=== PATIENT | female | born 1945 | race Hispanic/Latino ===

== ENCOUNTER 2016-10-15 14:07 | Outpatient (CLI) | payer MEDICARE | END 2016-10-15 14:08 | disposition home or self-care (01) | LOC: SPVWC 14:07 | PROVIDERS: ATTEND Internal Medicine Hematology & Oncology | DX: C50.811 Malignant neoplasm of overlapping sites of right female breast (principal); M79.605 Pain in left leg ==

== ENCOUNTER 2016-11-19 09:22 | Outpatient (CLI) | payer MEDICARE ==
--- NOTE | 2016-11-19 15:53 | Cat Scan Report ---
CT CHEST, ABDOMEN AND PELVIS WITH CONTRAST: 11/19/16 09:22:00 CLINICAL: History of right breast cancer involving overlapping sites. COMPARISON: 07/30/16 TECHNIQUE: Volumetric acquisition and 1.25 millimeter scan reconstructions after the uneventful intravenous injection of 100 cc of Omnipaque 300. Consent was obtained prior to the administration of the contrast. Oral contrast was also given. FINDINGS: Chest: The previously described multilobar bilateral lung opacities have largely resolved. Mild residual left lower lobe superior segment patchy opacity. Multilobar emphysema. The previously described enlarged right retrocrural lymph node has resolved. No mediastinal or hilar lymphadenopathy. A large right hiatal hernia and loculated small right pleural effusion are stable. The heart, aorta and pulmonary arteries are unremarkable. Abdomen: Stable 8mm benign left hepatic cysts. No liver mass. The liver is normal size with no normal overall density. The gallbladder is normal. Stable mild intrahepatic and extrahepatic biliary dilatation without an identified etiology. Much of the stomach is in the chest. The distal stomach and duodenum were normal. Normal pancreas and spleen. Stable mild enlargement of the right adrenal gland. Normal left adrenal gland. The renal pelves are mildly dilated but the kidneys are otherwise normal. The ureters are nondilated. Stable 3 cm infrarenal abdominal aortic aneurysm with intramural thrombus. The inferior vena cava is normal. No lymphadenopathy.No ascites.The small bowel and colon are normal. Normal appendix. Pelvis: Normal urinary bladder and rectum.Normal sigmoid colon. Absence of the uterus a normal vaginal cuff. The ovaries are small and unremarkable. Bone windows demonstrate a stable mixed sclerotic and lucent lesion of the left scapula. No new bone lesions. IMPRESSION:1. Resolution of multilobar pneumonia and no evidence of pulmonary metastasis. 2. No evidence of hepatic or rizwana metastasis. 3. A stable mixed lytic and sclerotic lesion of the left scapula.
== END 2016-11-19 09:23 | disposition home or self-care (01) ==
LOC: SPVIMAG 09:22
PROVIDERS: ATTEND Internal Medicine Hematology & Oncology
DX: C50.811 Malignant neoplasm of overlapping sites of right female breast (principal); I71.4 Abdominal aortic aneurysm, without rupture; K44.9 Diaphragmatic hernia without obstruction or gangrene; J90 Pleural effusion, not elsewhere classified; J43.8 Other emphysema; K76.89 Other specified diseases of liver; E27.8 Other specified disorders of adrenal gland; Z90.710 Acquired absence of both cervix and uterus
CPT/HCPCS: 71260; 74177; Q9967

== ENCOUNTER 2017-06-18 15:09 | Outpatient (CLI) | payer MEDICARE ==
--- NOTE | 2017-06-18 17:05 | Nuclear Medicine Report ---
VENTILATION PERFUSION SCAN INDICATION: Malignant neoplasm of overlapping sites of right breast. COMPARISON: Accompanying CXR and 11/19/[address] FINDINGS: VQ scan performed in anterior, posterior, lateral and oblique projections. 5 mCi of technetium 99m MAA was used for the perfusion assessment while 15 millicuries of Xenon 133 was utilized for the ventilation portion of the study. Ventilation images demonstrate photopenia in the right lower medial lung. The perfusion correlates with the ventilation. No other large lobar or definite segmental defects. Available chest radiograph from 4:42 PM today demonstrates right lower lung opacity, representing small pleural fluid with atelectasis/consolidation and large hiatal hernia containing stomach at the right lung base as known from prior CT. CONCLUSION: Intermediate probability exam for pulmonary embolism by PIOPED criteria, though overall likelihood of pulmonary embolism felt low, as described. Please correlate. Thank you for the opportunity to participate in this patient's care.
--- NOTE | 2017-06-19 07:20 | Vascular Lab Report ---
Left Lower Extremity Venous Duplex Study: Reason for Exam: Edema of the left lower extremity. Comments on the Right: A limited duplex study was done of the proximal veins of the right lower extremity. All veins visualized are freely compressible without evidence of internal echogenicity. Flow is spontaneous and phasic throughout. No evidence of acute or chronic thrombus is seen in any of the vessels visualized. Comments on the Left: All veins visualized are freely compressible without evidence of internal echogenicity. Flow is spontaneous and phasic throughout. No evidence of acute or chronic thrombus is seen in any of the vessels visualized. Impression: No evidence of acute or chronic deep venous thrombosis in the left lower extremity.
--- NOTE | 2017-06-19 07:40 | XRay Report ---
Single view chest: History: Evaluate for PE. Findings: Cardiomegaly. Trachea is midline. Emphysema. No acute consolidation or pleural effusion. Impression: Emphysema. No acute lung changes.
== END 2017-06-18 15:10 | disposition home or self-care (01) ==
LOC: NM 15:09
PROVIDERS: ATTEND Internal Medicine Hematology & Oncology
DX: C50.811 Malignant neoplasm of overlapping sites of right female breast (principal); R60.9 Edema, unspecified; K44.9 Diaphragmatic hernia without obstruction or gangrene; I51.7 Cardiomegaly; J43.9 Emphysema, unspecified
CPT/HCPCS: 71010; 78582; 93971; A9540; A9558

== ENCOUNTER 2017-07-16 08:57 | Outpatient (CLI) | payer MEDICARE ==
[2017-07-16 10:15] LABS: Blood Urea Nitrogen 22 mg/dL (7-17)
[2017-07-16] MEDS ORDERED: NACL ONE (12:07)
--- NOTE | 2017-07-16 13:15 | Cat Scan Report ---
CT of the chest with IV contrast. History: Breast cancer, followup study. Findings: Comparison is made to the previous study on 2015. The heterogeneous lesions in the right lobe of the thyroid are stable. There is no hilar adenopathy on today's study. The mildly enlarged left anterior hilar node seen on the previous study as resolved. No mediastinal or axillary adenopathy is present. The large hiatal hernia to the right of midline is again identified unchanged. Emphasematous changes persist, but no pulmonary nodules or masses are seen. There is no pleural fluid. Impression: 1. No evidence of metastatic disease in the chest. Left hilar adenopathy has resolved. 2. Stable large hiatal hernia and Emphasematous changes are noted.
--- NOTE | 2017-07-16 15:18 | Cat Scan Report ---
CT of the abdomen and pelvis with IV and oral contrast. History: Breast cancer, followup study. Findings: Comparison is made to the previous study on November 19, 2016. The large right-sided hiatal hernia is again noted. A subcentimeter hypodensity in the anterior left lobe of the liver is stable. No new liver lesions are seen. The spleen and pancreas are unremarkable. The gallbladder appears normal. The kidneys are normal in size and configuration. There is mild stable prominence of the right adrenal gland. The left adrenal gland is normal. There is no retroperitoneal adenopathy. There is ectasia of the distal abdominal aorta which measures 3 cm in diameter, unchanged from the previous study. There are no pelvic masses or abnormal fluid collections. No mesenteric inflammation seen. A small round subcentimeter sclerotic lesion is seen in the superior aspect of the L5 vertebral body, unchanged. A similar subcentimeter area of sclerosis is seen in the left inferior pubic ramus, also unchanged. A mixed sclerotic/lytic lesion in the left iliac wing measuring 1 cm in diameter is unchanged. Impression: 1. Stable hepatic hypodensity in the left lobe consistent with a benign process. 2. Stable prominent right adrenal gland, also consistent with a benign process. 3. Stable ectasia of the abdominal aorta. 4. 3 small bone lesions are described and are also unchanged.
--- NOTE | 2017-07-17 10:22 | Nuclear Medicine Report ---
NUCLEAR MEDICINE WHOLE-BODY BONE SCAN: 07/16/17 CLINICAL: Breast cancer COMPARISON: 10/11/15 TECHNIQUE: 25.0 millicuries technetium 99m MDP was injected intravenously and whole body scans were obtained at 3 hours. FINDINGS: Focal uptake in the midsternum is new compared to the previous exam. Stable uptake in the left shoulder and lumbar spine which is presumably related to arthritis. The lumbar spine activity is to the right at L5. No other new activity. Normal distribution of activity in the soft tissues. IMPRESSION: Focal uptake in the midsternum is new compared to the prior exam and is consistent with a metastasis. Although new compared to the previous bone scan, it correlates with a sclerotic sternal lesion which is identified in retrospect on the 11/19/16 CT chest. This lesion is new compared to the 10/11/15 CT chest.
== END 2017-07-16 08:58 | disposition home or self-care (01) ==
LOC: NM 08:57
PROVIDERS: ATTEND Internal Medicine Hematology & Oncology
DX: C50.811 Malignant neoplasm of overlapping sites of right female breast (principal); K44.9 Diaphragmatic hernia without obstruction or gangrene; I77.811 Abdominal aortic ectasia; M89.9 Disorder of bone, unspecified; R60.9 Edema, unspecified
CPT/HCPCS: 36415; 71260; 74177; 78306; 82565; 84520; A9503; Q9967